=== PATIENT | female | born 1960 | race Caucasian/White ===

== ENCOUNTER 2016-06-19 01:09 | Emergency (ER) | payer MEDICARE ==
[~2016-06-19] VITALS: Ht 152.4 cm; Wt 77.1 kg
[~2016-06-19 01:09] MED LIST: IBUP-1060 PO; LISI-334 PO; SULF1TAB24 PO
[2016-06-19] MEDS ORDERED: IBUP-985 PO (02:27)
[2016-06-19] MEDS ORDERED: LISI-334 PO (02:27)
--- NOTE | 2016-06-19 02:27 | PHYS DOC ---
Past Medical History Past Medical History: Hypertension, Other Additional Past Medical Histor: RA Past Surgical History: No Surgical History Alcohol Use: None Drug Use: None Adult General Chief Complaint Chief Complaint: MEDICATION REFILL HPI HPI Is a 56-year-old female who denies any sick specific complaints other than in need of refill for her lisinopril for which takes 20 mg twice a day and a prescription for Motrin for her chronic joint pain. Patient states she is here to be evaluated because her is also being seen for flulike symptoms and she currently does not have a primary care doctor and is worried that she will run out of her blood pressure medication. She denies any specific symptoms at this time. She denies any chest pain or shortness of breath. Review of Systems Review of Systems Constitutional: Denies fever or chills [] Eyes: Denies change in visual acuity, redness, or eye pain [] HENT: Denies nasal congestion or sore throat [] Respiratory: Denies cough or shortness of breath [] Cardiovascular: No additional information not addressed in HPI [] GI: Denies abdominal pain, nausea, vomiting, bloody stools or diarrhea [] : Denies dysuria or hematuria [] Musculoskeletal: Denies back pain or joint pain [] Integument: Denies rash or skin lesions [] Neurologic: Denies headache, focal weakness or sensory changes [] Endocrine: Denies polyuria or polydipsia [] Allergies Allergies Allergies Coded Allergies Type Severity Reaction Last Updated Verified No Known Drug Allergies 01/10/16 No Physical Exam Physical Exam Constitutional: Well developed, well nourished, no acute distress, non-toxic appearance. [] HENT: Normocephalic, atraumatic, bilateral external ears normal, oropharynx moist, no oral exudates, nose normal. [] Eyes: PERRLA, EOMI, conjunctiva normal, no discharge. [] Neck: Normal range of motion, no tenderness, supple, no stridor. [] Cardiovascular:Heart rate regular rhythm, no murmur [] Lungs & Thorax: Bilateral breath sounds clear to auscultation [] Abdomen: Bowel sounds normal, soft, no tenderness, no masses, no pulsatile masses. [] Skin: Warm, dry, no erythema, no rash. [] Back: No tenderness, no CVA tenderness. [] Extremities: No tenderness, no cyanosis, no clubbing, ROM intact, no edema. [] Neurologic: Alert and oriented X 3, normal motor function, normal sensory function, no focal deficits noted. [] Psychologic: Affect normal, judgement normal, mood normal. [] Current Patient Data Vital Signs Vital Signs Date Time Temp Pulse Resp B/P Pulse Ox O2 Delivery O2 Flow Rate FiO2 06/19/16 02:30 74 18 140/72 100 Room Air 06/19/16 01:16 98.2 98.2 EKG EKG [] Radiology/Procedures Radiology/Procedures [] Course & Med Decision Making Course & Med Decision Making Pertinent Labs and Imaging studies reviewed. (See chart for details) This 56-year-old female will be given prescription for 2 weeks of lisinopril and some Motrin for her joint pain. I counseled the patient at length that she' ll need follow closely with her primary care doctor for her blood pressure in prescription refill. There is no indication at this time to form any laboratory workup. She'll be discharged without incident to follow up with primary care physician. Flako Disclaimer Dragon Disclaimer This electronic medical record was generated, in whole or in part, using a voice recognition dictation system. Departure Departure Impression: Primary Impression: Hypertension Disposition: 01 HOME, SELF-CARE Condition: STABLE Referrals: UNKNOWN PCP NAME (PCP) Patient Instructions: Hypertension, [id number] Additional Instructions: Please take your medication as prescribed. Return to the ER if you develop any worsening of your symptoms. Follow up with your primary doctor as discussed. Scripts Ibuprofen 600 Mg [id number] Mg PO Q6HRS #20 Prov:EM LUNDBERG DO 06/19/16 Lisinopril 20 Mg [id number] Mg PO BID FOR HYPERTENSION #28 TAB Ref 0 Prov:EM LUNDBERG DO 06/19/16 EM LUNDBERG DO Jun 19, 2016 02:27
[2016-06-19 02:30] VITALS: BP 140/72
== END 2016-06-19 02:40 | disposition home or self-care (01) ==
LOC: ER 01:09
DX: I10 Essential (primary) hypertension (principal); G89.29 Other chronic pain; M06.9 Rheumatoid arthritis, unspecified
CPT/HCPCS: 99283